=== PATIENT | female | born 1950 | race Caucasian/White ===

== ENCOUNTER 2021-07-23 11:25 | Day surgery (SDC) | payer BC, MEDICARE ==
[2021-07-23] MEDS: Sodium Chloride 0.9% 10 ML Syringe FLUSH PRN (10:10)
[~2021-07-23 11:25] MED LIST: Lactated Ringers 1,000 ML IV PRN
[2021-07-23] MEDS ORDERED: Midazolam 1 MG/ML 2 ML SDV IV ONE (11:26)
[2021-07-23] MEDS: acetaZOLAMIDE 500 MG Cap.ER PO ONE (11:50)
--- NOTE | 2021-07-23 12:46 | OR ---
DATE OF OPERATION: 07/23/2021 SURGEON: Miriam Kan MD PREOPERATIVE DIAGNOSES: 1. Visually-significant cataract, right eye. 2. Primary open-angle glaucoma, mild stage, right eye. 3. Astigmatism, right eye. 4. Status post LASIK, right eye. POSTOPERATIVE DIAGNOSES: 1. Visually-significant cataract, right eye. 2. Primary open-angle glaucoma, mild stage, right eye. 3. Astigmatism, right eye. 4. Status post LASIK, right eye. PROCEDURES PERFORMED: 1. Phacoemulsification with Toric intraocular lens placement, right eye. 2. Insertion of anterior segment aqueous drainage device without extraocular reservoir, internal approach, into the trabecular meshwork using iStent inject, CPT 0191T and 0376T. ASSISTANTS: None. ANESTHESIA: Local with sedation. COMPLICATIONS: None. BLOOD LOSS: None. IMPLANTS: 1. A pre-loaded HEX771 20.0 diopter lens implanted. 2. iStent inject. CDE: 2.42. DESCRIPTION OF PROCEDURE: After risks and benefits were reviewed with the patient, consent was obtained in the preoperative area, and the operative eye was marked with a surgical pen. In the preoperative area, a pledget was used to dilate the pupil consisting of a mixture of phenylephrine 10%, cyclopentolate 2%, moxifloxacin 0.5%, and bupivacaine 0.75%. The patient was placed in the seating position and a Toric marker was used to violetta the 0 and 180 axis. The patient was taken to the operating room, where a time-out was performed, and the patient was placed under monitored anesthesia care. Topical tetracaine was used for anesthesia. The operative eye was prepped and draped for ophthalmic surgery, and the microscope was brought into position and focused. A Toric marker was used to violetta the axis of astigmatism. A paracentesis incision was made, followed by injection of preservative-free 1% lidocaine into the anterior chamber, followed by injection of Viscoat into the anterior chamber. A microkeratome blade was used to make a corneal limbal incision temporally. A cystotome was used to make the beginning of the capsulorrhexis, which was carried around 360 degrees in a curvilinear fashion using Utrata forceps. A Fraga cannula with BSS was used to hydrodissect and hydrodelineate the nucleus. The nucleus was removed in a divide and conquer manner using phacoemulsification. Irrigation and aspiration were used to remove the remaining cortical material. Provisc was used to inflate the capsular bag, and a pre-loaded NCR661 20.0 diopter lens, serial number [id number] was injected into the capsular bag. A Sinskey hook was used to position and center the lens and rotate it to the axis of astigmatism. Attention was turned to the iStent inject portion of the surgery. The microscope was rotated to help visualize the angle and further Provisc was injected into anterior chamber to balloon up the anterior chamber until it was filled with Provisc or Viscoat. The patient was asked to look down. A small amount of Provisc was siphoned to the cornea, and a gonioprism was used to help visualize the angle. The microscope was zoomed in. The iStent inject using serial number [id number] was then brought onto the field and into the anterior chamber. The protective cover was retracted and iStent inject was then injected into the trabecular meshwork and Schlemm canal. This was repeated a second time for the second inject. Next, irrigation and aspiration was used to remove any remaining viscoelastic and cortical material from the anterior chamber. BSS on a cannula was used to inflate the anterior chamber and hydrate the wound. The wound was checked and found to be watertight. 1 mg of Moxifloxacin was injected into the anterior chamber. Drapes were removed and the eye was cleaned. A drop of brimonidine 0.2% and a drop of TobraDex was placed. The eye was shielded, and the patient was taken to the recovery room in stable condition. /[id number] NICOLE/KIARA
== END 2021-07-23 12:10 | disposition home or self-care (01) ==
LOC: FB.SDS 11:25
PROVIDERS: ATTEND Ophthalmology
DX: H40.1111 Primary open-angle glaucoma, right eye, mild stage (principal); H25.813 Combined forms of age-related cataract, bilateral; H40.1131 Primary open-angle glaucoma, bilateral, mild stage; H02.88A Meibomian gland dysfunction right eye, upper and lower eyelids; H02.88B Meibomian gland dysfunction left eye, upper and lower eyelids; H04.123 Dry eye syndrome of bilateral lacrimal glands; H52.201 Unspecified astigmatism, right eye; I10 Essential (primary) hypertension; E78.5 Hyperlipidemia, unspecified; R19.7 Diarrhea, unspecified; K21.9 Gastro-esophageal reflux disease without esophagitis; Z79.899 Other long term (current) drug therapy; Z88.8 Allergy status to other drugs, medicaments and biological substances; Z98.890 Other specified postprocedural states
CPT/HCPCS: 00142-QZ; A9270-GY; J2250

== ENCOUNTER 2021-08-13 07:38 | Day surgery (SDC) | payer MEDICARE ==
[~2021-08-13 07:38] MED LIST changes: +Sodium Chloride 0.9% 10 ML Syringe FLUSH PRN
[2021-08-13] MEDS ORDERED: Sodium Chloride 0.9% 10 ML Syringe IV ONE (07:39)
[2021-08-13] MEDS ORDERED: Midazolam 1 MG/ML 2 ML SDV IV ONE (07:39)
[2021-08-13] MEDS ORDERED: acetaZOLAMIDE 500 MG Cap.ER PO ONE (09:30)
--- NOTE | 2021-08-13 13:20 | OR ---
DATE OF OPERATION: 08/13/2021 SURGEON: Miriam Kan MD PREOPERATIVE DIAGNOSES: 1. Visually significant cataract, left eye. 2. Primary open-angle glaucoma, mild stage, left eye. 3. Status post LASIK, left eye. POSTOPERATIVE DIAGNOSES: 1. Visually significant cataract, left eye. 2. Primary open-angle glaucoma, mild stage, left eye. 3. Status post LASIK, left eye. PROCEDURES PERFORMED: 1. Phacoemulsification with intraocular lens placement, left eye. 2. Insertion of anterior segment aqueous drainage device without extraocular reservoir, internal approach, into the trabecular meshwork using iStent inject, CPT 0191T and 0376T. ASSISTANTS: None. ANESTHESIA: Local with sedation. COMPLICATIONS: None. BLOOD LOSS: None. IMPLANTS: 1. A pre-loaded DIB00 18.5 diopter lens implanted. 2. iStent inject. CDE: 1.59. DESCRIPTION OF PROCEDURE: After risks and benefits were reviewed with the patient, consent was obtained in the preoperative area, and the operative eye was marked with a surgical pen. In the preoperative area, a pledget was used to dilate the pupil consisting of a mixture of phenylephrine 10%, cyclopentolate 2%, moxifloxacin 0.5%, and bupivacaine 0.75%. The patient was taken to the operating room, where a time-out was performed, and the patient was placed under monitored anesthesia care. Topical tetracaine was used for anesthesia. The operative eye was prepped and draped for ophthalmic surgery, and the microscope was brought into position and focused. A paracentesis incision was made, followed by injection of preservative-free 1% lidocaine into the anterior chamber, followed by injection of Viscoat into the anterior chamber. A microkeratome blade was used to make a corneal limbal incision temporally. A cystotome was used to make the beginning of the capsulorrhexis, which was carried around 360 degrees in a curvilinear fashion using Utrata forceps. A Fraga cannula with BSS was used to hydrodissect and hydrodelineate the nucleus. The nucleus was removed in a divide and conquer manner using phacoemulsification. Irrigation and aspiration were used to remove the remaining cortical material. Provisc was used to inflate the capsular bag, and a pre-loaded DIB00 18.5 diopter lens, serial number [id number] was injected into the capsular bag. A Sinskey hook was used to position and center the lens. Attention was turned to the iStent inject portion of the surgery. The microscope was rotated to help visualize the angle and further Provisc and/or Viscoat was injected into anterior chamber to balloon up the anterior chamber until it was filled with Provisc or Viscoat. The patient was asked to look down. A small amount of Provisc was siphoned to the cornea, and a gonioprism was used to help visualize the angle. The microscope was zoomed in. The iStent inject using serial number [id number] was then brought onto the field and into the anterior chamber. The protective cover was retracted and iStent inject was then injected into the trabecular meshwork and Schlemm canal. This was repeated a second time for the second inject. Next, irrigation and aspiration was used to remove any remaining viscoelastic and cortical material from the anterior chamber. BSS on a cannula was used to inflate the anterior chamber and hydrate the wound. The wound was checked and found to be watertight. 1 mg of Moxifloxacin was injected into the anterior chamber. Drapes were removed and the eye was cleaned. A drop of brimonidine 0.2% and a drop of TobraDex was placed. The eye was shielded, and the patient was taken to the recovery room in stable condition. /[id number] NICOLE/KIARA
== END 2021-08-13 10:00 | disposition home or self-care (01) ==
LOC: FB.SDS 07:38
PROVIDERS: ATTEND Ophthalmology
DX: H40.1131 Primary open-angle glaucoma, bilateral, mild stage (principal); H25.813 Combined forms of age-related cataract, bilateral; H02.88B Meibomian gland dysfunction left eye, upper and lower eyelids; H04.123 Dry eye syndrome of bilateral lacrimal glands; H02.88A Meibomian gland dysfunction right eye, upper and lower eyelids; I10 Essential (primary) hypertension; E78.5 Hyperlipidemia, unspecified; F41.9 Anxiety disorder, unspecified; K21.9 Gastro-esophageal reflux disease without esophagitis; Z79.899 Other long term (current) drug therapy; Z88.8 Allergy status to other drugs, medicaments and biological substances; Z98.890 Other specified postprocedural states
CPT/HCPCS: 00142; 0191T; 0376T; 64721; A9270; C1783; J2250

== ENCOUNTER 2021-10-07 10:33 | Day surgery (SDC) | payer MEDICARE ==
[~2021-10-07 10:33] MED LIST changes: -Lactated Ringers 1,000 ML IV PRN
[2021-10-07] MEDS ORDERED: Propofol 200 MG/20 ML SDV IV ONE (10:34)
[2021-10-07] MEDS ORDERED: Lidocaine 1% PF 2 ML SDV INJECT ONE (10:34)
[2021-10-07] MEDS: Lactated Ringers 1,000 ML IV SCH (11:02)
== END 2021-10-07 12:47 | disposition home or self-care (01) ==
LOC: FB.SDS 10:33
PROVIDERS: ATTEND Surgery
DX: K52.832 Lymphocytic colitis (principal); K64.8 Other hemorrhoids; M85.80 Other specified disorders of bone density and structure, unspecified site; I10 Essential (primary) hypertension; K21.9 Gastro-esophageal reflux disease without esophagitis; Z98.890 Other specified postprocedural states; Z79.899 Other long term (current) drug therapy; Z88.8 Allergy status to other drugs, medicaments and biological substances
CPT/HCPCS: 00811-QZ; 88305; J2704; J7120

== ENCOUNTER 2025-08-16 06:06 | Day surgery (SDC) | payer MEDICARE ==
[2025-08-16] MEDS ORDERED: Propofol 200 MG/20 ML SDV IV ONE (06:07)
[2025-08-16] MEDS ORDERED: Sodium Chloride 0.9% 10 ML Syringe FLUSH PRN (06:15)
[2025-08-16] MEDS: Lactated Ringers 1,000 ML IV SCH (07:02)
== END 2025-08-16 09:15 | disposition home or self-care (01) ==
LOC: FB.SDS 06:06
PROVIDERS: ATTEND Surgery
DX: Z12.11 Encounter for screening for malignant neoplasm of colon (principal); K63.5 Polyp of colon; K52.9 Noninfective gastroenteritis and colitis, unspecified; K21.9 Gastro-esophageal reflux disease without esophagitis; I10 Essential (primary) hypertension; E78.5 Hyperlipidemia, unspecified; Z80.0 Family history of malignant neoplasm of digestive organs; Z88.8 Allergy status to other drugs, medicaments and biological substances; Z79.899 Other long term (current) drug therapy
CPT/HCPCS: 00811; 45380; 45384; 88305; 99100; A9270; J2003; J2704; J7120